=== PATIENT | male | born 1940 | race Caucasian/White ===

== ENCOUNTER 2016-07-25 11:51 | Emergency (ER) | payer MEDICARE ==
[~2016-07-25] VITALS: Ht 185.4 cm; Wt 115.9 kg
[2016-07-25 11:53] VITALS: BP 146/84; RESP 20; O2SAT 97
--- NOTE | 2016-07-25 12:09 | ED.REPORT ---
HPI-General Illness Date of Service Jul 25, 2016 ED Provider: Jaron Raymond MD 75 year old male presents to the ER accompanied by his with 24 hours of nosebleed. Patient denies history of nosebleeds. reports that both of them had the flu about a month ago, with residual nasal congestion since. He takes 325mg ASA daily. Patient works out 5 days/week. Nursing Notes Stated Complaint: NOSE BLEED Chief Complaint: ENT & Mouth Nursing Notes Reviewed: Yes Allergies: Coded Allergies: No Known Allergies (Unverified , 07/25/16) General Time Seen by MD: 11:57 Chief Complaint Other (Epistaxis) Hx Obtained From: Patient, Spouse Arrived By: Walk-in Sudden in Onset?: No Onset Occurred: Yesterday Symptom Duration: Since onset Associated with: Reports: Congestion Recent Healthcare: Recent doctor visit Similar Sx Previous: No Past Medical History Past Surgical History Laminectomy 4-5 Reports: Knee replacement (Right), Pacemaker insertion Smoking History Former Smoker Social History Other Social History: Good social support, Ambulatory Status Independent Review of Systems Full Review of Systems Ears / Nose / Throat: Reports: Nasal congestion, Nose bleeding, Denies: Earache bilateral, Mouth pain, Throat pain GI: Denies: Nausea, Vomiting Complete sys rev & neg: except as marked. Physical Exam Vital Signs Vital Signs Date Time Temp Pulse Resp B/P Pulse Ox O2 Delivery O2 Flow Rate FiO2 07/25/16 11:53 35.8 62 20 146/84 97 Room Air Initial VS: Reviewed General/Constitutional: Well-developed, Well-nourished Head / Eyes: Atraumatic, Normocephalic Neck: Supple, Non-tender, Full range of motion Extremities: Vascular intact, Neuro intact, No swelling, No tenderness Skin: Warm, Dry, No cyanosis Neurologic: Alert, Oriented, Nonfocal Psychiatric: Mood/affect normal, Behavior normal, Normal thought content ENT: Airway patent, Mucous membranes moist, Pharynx NL Nose: Positive: Epistaxis left Nasal packing in place, Left nostril. Procedures Epistaxis Management Time: 12:21 Procedure Performed by: ED physician, ED resident Consent / Setup / Site Prep: Informed consent provided, Consent from patient , Time-out performed, Hand hygiene observed, Stand sterile technique Side and Location of Bleed: Nare left - unknown Pre-medication and Procedure: Other med (Lubricating Jelly), Rapid rhino inserted (4.5cm) Post-Procedure / Complications: No complications, Patient stable, Tolerated procedure well Re-Eval/Medical Decision Med Decision/Clinical Course 75-year-old male on daily aspirin presenting with epistaxis times one day. Rhino Rocket placed in urgent care yesterday. Sent to urgent care today who sent him over for placement of balloon Rhino Rocket which urgent care does not have. On arrival patient with no active bleeding. I did remove the old Rhino Rocket and replace a 4.5 Rhino Rocket. Hemostasis achieved. Patient was discharged home with plans to follow with primary doctor or urgent care tomorrow for possible removal. Patient does have Afrin spray that he may use as needed. Return precautions regarding any new or worsening bleeding, signs symptoms anemia. Source of Hx: Old records Time of Eval: 12:20 Re-Evaluation/Progress Note: Epistaxis management. Discussed plan to discharge. Patient is amenable to the plan. Return precautions given. All other questions addressed. Counseled Regarding: Diagnosis, Need for follow-up, When/why to return to ED Discharge & Departure Primary Impression: Epistaxis Disposition: Home Discharge Condition All VS Reviewed: Yes Condition: Stable Patient Instructions: Epistaxis (ED) Additional Instructions: We controlled the bleeding today in the ER with rhinorocket. Avoid strenuous activity. Follow-up with your primary care doctor tomorrow for re-evaluation and packing removal. Call the ENT doctor at the number provided to arrange a follow-up appointment. Return to the ER if you develop any dizziness, lightheadedness, shortness of breath, chest pain, or any other worsening or concerning symptoms. Referrals: Levar Agosto MD (PCP) Luiz Renteria MD Attestation Portions of this note were transcribed by Orlando Juarez. I, Dr. Raymond, personally performed the history, physical exam and medical decision-making; I reviewed and confirmed the accuracy of the information in the transcribed note. Signed by: Sheldon Pierre, 07/25/2016 and 12:47 copies to: Levar Agosto MD; Luiz Renteria MD, Ben M MD Jul 25, 2016 12:09 ORLANDO JUAREZ Jul 25, 2016 12:16
== END 2016-07-25 13:04 | disposition home or self-care (01) ==
LOC: SED 11:51
DX: R04.0 Epistaxis (principal); Z87.891 Personal history of nicotine dependence

== ENCOUNTER 2016-07-26 02:48 | Emergency (ER) | payer MEDICARE ==
[2016-07-26 02:56] VITALS: BP 164/96; RESP 16; O2SAT 99
--- NOTE | 2016-07-26 03:16 | ED.REPORT ---
HPI-Facial Injury Date of Service Jul 26, 2016 ED Provider: Al Lopez MD Patient is a 75 year old male who presents to the ED due to a persistent nosebleed from his left nostril that has been ongoing for the past 2 days. This is the patient's 4th medical visit for this complaint. He was seen at Urgent Care and then at the ED yesterday morning. A rhino rocket was inserted at that time. The patient states that his bleeding was improved for some time but he then began to drip blood from his nose again. Patient reports that the blood is also dripping down his throat and sometimes from her right nostril. He takes 325mg aspirin daily and is not on any other blood thinning medications. His PCP has not been helpful with this complaint, but they did arrange an ENT appointment for 07/28/2016 at 7:15am. Nursing Notes Stated Complaint: NOSEBLEED Chief Complaint: ENT & Mouth Nursing Notes Reviewed: Yes Allergies: Coded Allergies: No Known Allergies (Unverified , 07/26/16) General Time Seen by Provider: 03:19 Chief Complaint Nose bleed Hx Obtained From: Patient Arrived By: Walk-in Onset Occurred: 2 days ago Symptom Duration: Since onset Progression Since Onset: Waxes and wanes (currently worse) Quality: Painful Severity: Current: Mild Severity: Maximum: Mild Recent Healthcare: No recent doctor visit, No recent hospitalization Similar Sx Previous: No Past Medical History Past Medical History atrial fibrillation on 325 mg aspirin Past Surgical History Laminectomy 4-5 Reports: Knee replacement, Pacemaker insertion Smoking History Former Smoker Social History Other Social History: Good social support, , Local resident Ambulatory Status Independent Review of Systems Ears / Nose / Throat: Reports: Nose bleeding, Denies: Throat pain Complete sys rev & neg: except as marked. Hematologic: Reports Bleeding, Denies Bruising Physical Exam Initial Vital Signs Vital Signs (First) Date Time Temp Pulse Resp B/P Pulse Ox O2 Delivery O2 Flow Rate FiO2 07/26/16 02:56 36.2 70 16 164/96 99 Room Air Initial VS: Reviewed, Vital signs normal Extremities: Vascular intact, Neuro intact Skin: Warm, Dry, No cyanosis Psychiatric: Mood/affect normal, Behavior normal, Normal thought content Head / Eyes: Normocephalic, PERRL, EOMI ENT: Airway patent, Pharynx NL rhino rocket in left nostril, dripping blood Neck: Supple, Non-tender Neurologic: Oriented X3, Speech NL, No motor deficits, No sensory deficits General/Constitutional: Awake, Alert, No acute distress Respiratory / Chest: Breath sounds NL, No respiratory distress, No stridor Cardiovascular: Heart rate NL, Cap refill not delayed Re-Eval/Medical Decision Med Decision/Clinical Course 75-year-old who has had intermittent nosebleed over the last 3 or 4 days. This is his fourth visit concerning this. He has a left-sided Rhino Rocket in and he is concerned about some continued mild postnasal dripping and moisture from the front of the nose. This does not appear to be rosa blood but rather serous mucus associated with the irritation of the device. Afrin was instilled which helped. I offered to place another packing the other side to give counter pressure, or to remove this when and try a larger device. He has an appointment Thursday with ENT and will keep that. He will call me or return over the weekend if he worsens. Source of Hx: Old records Re-Evaluation/Progress #1: Time of Eval: 04:00 Patient Status: Condition improved Re-Evaluation/Progress Note: Rechecked the patient after afrin administration. He is improved but still dripping. Re-Evaluation/Progress #2: Time of Eval: 05:15 Patient Status: Condition improved Re-Evaluation/Progress Note: Patient would like to go home. His nose continues to drip. He was given options for further treatment and elects to go home with afrin. Patient understands and agrees with the plan to be discharged home. Discharge instructions and follow-up discussed. All questions were addressed. Return to the ED warnings given. Counseled Regarding: Diagnosis, Need for follow-up, When/why to return to ED Discharge & Departure Impression: Primary Impression: Epistaxis Disposition: Home Discharge Condition All VS Reviewed: Yes Condition: Stable Patient Instructions: Epistaxis (ED) Additional Instructions: A small amount of dripping like this is actually pretty common. It sometimes is actual bleeding, other times just bloody mucus from the irritated nasal lining. No further action is necessary at this time. 2 drops of Afrin in the pack twice daily. Follow up as planned with ENT Thursday. Contact me at [phone] between the hours of 9 PM and 6 AM tonight or tomorrow night if you have any concerns or questions. Referrals: Levar Agosto MD (PCP) Scribe Attestation Portions of this note were transcribed by Maureen Gates. I, Dr. Lopez personally performed the history, physical exam and medical decision-making; I reviewed and confirmed the accuracy of the information in the transcribed note. Signed by: Sheldon Campbell, 07/26/2016 0538 copies to: Levar Agosto MD, Howard L MD Jul 26, 2016 03:16 Maureen Gates Jul 26, 2016 03:26
[2016-07-26 05:25] VITALS: BP 144/89; PULSE 58; RESP 20; O2SAT 97
== END 2016-07-26 05:26 | disposition home or self-care (01) ==
LOC: SED 02:48
DX: R04.0 Epistaxis (principal); I48.91 Unspecified atrial fibrillation; Z87.891 Personal history of nicotine dependence; Z95.0 Presence of cardiac pacemaker; Z79.82 Long term (current) use of aspirin

== ENCOUNTER 2016-07-28 02:02 | Emergency (ER) | payer MEDICARE ==
[~2016-07-28] VITALS: Ht 185.4 cm; Wt 115.9 kg
[2016-07-28 02:09] VITALS: BP 136/71; RESP 16; O2SAT 97
--- NOTE | 2016-07-28 02:09 | ED.REPORT ---
HPI-Facial Injury Date of Service Jul 28, 2016 ED Provider: Al Lopez MD Patient is a 75 year old male who presents to the ED due to a persistent nosebleed from his left nostril that has been ongoing for the past 4 days. This evening the patient stated that he suddenly became dizzy and lightheaded. His noticed that he was pale and that he was less responsive. His states that he has been able to control the dripping with the position he is sitting in. However, tonight he sat up for a long time while reading a book. This is the patient's 5th medical visit for this complaint. He was seen at Urgent Care and then at the ED twice. A rhino rocket was inserted during his ED visit on 03/31 and he has been treating his bleeding with Afrin since his prior visit on 07/26/16. He states that blood is going down his throat and sometimes out of his right nostril. He takes 325mg aspirin daily and is not on any other blood thinning medications. He has an appointment with Dr. Renteria ENT, at 7:15am this morning. Nursing Notes Stated Complaint: NOSEBLEED Nursing Notes Reviewed: Yes Allergies: Coded Allergies: No Known Allergies (Unverified , 07/26/16) General Time Seen by Provider: 02:09 Chief Complaint Nose bleed Hx Obtained From: Patient Arrived By: Walk-in Onset Occurred: 4 days ago Symptom Duration: Since onset Recent Healthcare: Recent doctor visit Similar Sx Previous: Yes Past Medical History Past Medical History atrial fibrillation on 325 mg aspirin Past Surgical History Laminectomy 4-5 Reports: Knee replacement, Pacemaker insertion Smoking History Former Smoker Social History Other Social History: Good social support, , Local resident Ambulatory Status Independent Review of Systems Ears / Nose / Throat: Reports: Nose bleeding, Sinus problem Neurologic: Reports: Change LOC, Dizziness, Lightheaded Complete sys rev & neg: except as marked. Physical Exam Initial Vital Signs Vital Signs (First) Date Time Temp Pulse Resp B/P Pulse Ox O2 Delivery O2 Flow Rate FiO2 07/28/16 02:09 36.2 66 16 136/71 97 Room Air Initial VS: Reviewed, Vital signs normal Extremities: Vascular intact, Neuro intact Psychiatric: Mood/affect normal, Behavior normal, Normal thought content Head / Eyes: Atraumatic, Normocephalic, PERRL ENT: Airway patent Pack in place left nostril, dripping blood. Blood in the posterior pharynx, with small amount of blood in the right naris. Neck: Supple, Non-tender Neurologic: Oriented X3, Speech NL, No motor deficits, No sensory deficits General/Constitutional: Awake, Alert Appearance / Presentation: Positive: Obese, Pale Respiratory / Chest: Breath sounds NL, Breath sounds = bilat, No respiratory distress, No rales, No rhonchi, No wheezing Cardiovascular: Regular rhythm, No murmurs Heart Rate / Rhythm: Negative: Tachycardia Skin: Warm, Dry Interpretation & Diagnostics Lab Results Interpretation Result Diagram: 07/28/16 0210 Test 07/28/16 02:10 White Blood Count 7.2th/mm3 (3.8-10.1) Red Blood Count 4.72mil/mm3 (4.40-5.80) Hemoglobin 14.1g/dL (13.8-17.2) Hematocrit 42.4% (41.0-50.0) Mean Corpuscular Volume 89.8fL (81-100) Mean Corpuscular Hemoglobin 29.9pg (27.0-35.0) Mean Corpuscular Hemoglobin Concent 33.3% (32.0-37.0) Red Cell Distribution Width 13.4% (12.3-15.4) Platelet Count 174bil/L (150-400) Neutrophils (%) (Auto) 55.5% (40-74) Lymphocytes (%) (Auto) 31.3% (14-46) Monocytes (%) (Auto) 10.2% (4-12) Eosinophils (%) (Auto) 2.4% (0-5) Basophils (%) (Auto) 0.3% (0-3) Prothrombin Time 10.4sec (8.1-12.5) Prothromb Time International Ratio 0.97ratio Hold Andrade Top Tube Received (Received) Lab values outside NL range: no clinical significance. Lab Results Interpretation: No anemia Re-Eval/Medical Decision Med Decision/Clinical Course Persistent constant dripping around the packing. They have an appointment at 7: 30 this morning to see ENT but he seemed to be a bit more symptomatic with pallor and possibly some confusion. Here his mental status is normal, his vital signs are normal, and his H&H shows no anemia. With this presentation I think that problems from acute blood loss are unlikely. They will go to ENT as planned at 7:30 this morning. Source of Hx: Old records Re-Evaluation/Progress : Time of Eval: 02:45 Patient Status: Condition improved Re-Evaluation/Progress Note: H&H is normal on labs. Patient states that he feels improved. He will be hydrated and then discharged. Patient understands and agrees with the plan to be discharged home. Discharge instructions and follow-up discussed. All questions were addressed. Return to the ED warnings given. Counseled Regarding: Diagnosis, Lab results, Need for follow-up, When/why to return to ED Discharge & Departure Impression: Primary Impression: Epistaxis Disposition: Home Discharge Condition All VS Reviewed: Yes Condition: Stable Patient Instructions: Epistaxis (ED) Additional Instructions: Your blood count is normal. There is no serious danger at this time from the continued bleeding. Follow-up as planned this morning with ENT. Referrals: Levar Agosto MD (PCP) Scribe Attestation Portions of this note were transcribed by Maureen Gates. I, Dr. Lopez personally performed the history, physical exam and medical decision-making; I reviewed and confirmed the accuracy of the information in the transcribed note. Signed by: Sheldon Campbell, 07/28/2016 0243 copies to: Levar Agosto MD, Howard L MD Jul 28, 2016 02:09 Maureen Gates Jul 28, 2016 02:19
[2016-07-28 02:21] LABS: BASOPHILS % (AUTO) 0.3 % (0-3); EOSINOPHILS % (AUTO) 2.4 % (0-5); MONOCYTES % (AUTO) 10.2 % (4-12); Mean Corpuscular Hemoglobin 29.9 pg (27.0-35.0); Mean Corpuscular Volume 89.8 fL (81-100); NEUTROPHILS % (AUTO) 55.5 % (40-74); Platelet Count 174 bil/L (150-400)
[2016-07-28] MEDS ORDERED: 0.9% Sodium Chloride 1,000 ML IV ONE (02:30)
[2016-07-28 02:37] LABS: INR 0.97 ratio
[2016-07-28 03:33] VITALS: BP 138/68; PULSE 56; RESP 16; O2SAT 98
== END 2016-07-28 03:30 | disposition home or self-care (01) ==
LOC: SED 02:02
DX: R04.0 Epistaxis (principal); R42 Dizziness and giddiness; I48.91 Unspecified atrial fibrillation; Z96.659 Presence of unspecified artificial knee joint; Z95.0 Presence of cardiac pacemaker; Z87.891 Personal history of nicotine dependence
CPT/HCPCS: 36415; 85025; 85610; 96360; 99284; J7030